=== PATIENT | male | born 1960 | race Two or more races ===

== ENCOUNTER 2024-02-15 19:53 | Emergency (ER) | payer MEDICAID, OTHER ==
[~2024-02-15] VITALS: Ht 165.1 cm; Wt 71.2 kg
[2024-02-15] MEDS: ONDANSETRON ODT 4 MG TAB PO ONE (21:36)
[2024-02-15] MEDS: MORPHINE SULFATE INJ 2 MG/ml SYRG IM ONE (21:36)
[2024-02-15 21:37] VITALS: PULSE 93; RESP 18; O2SAT 99
[2024-02-15 21:56] VITALS: BP 134/78; PULSE 77; RESP 16
[2024-02-15] MEDS ORDERED: ACE3T PO (22:17)
== END 2024-02-15 22:50 | disposition home or self-care (01) ==
LOC: ER 19:53
DX: S82.892A Other fracture of left lower leg, initial encounter for closed fracture (principal); S22.41XA Multiple fractures of ribs, right side, initial encounter for closed fracture; S32.018A Other fracture of first lumbar vertebra, initial encounter for closed fracture; Z79.899 Other long term (current) drug therapy; V23.49XA Other motorcycle driver injured in collision with car, pick-up truck or van in traffic accident, initial encounter; Y93.I9 Activity, other involving external motion; Y92.89 Other specified places as the place of occurrence of the external cause; Y99.8 Other external cause status
CPT/HCPCS: 71250; 73610; 96372; 99285; J2270; Q0162